=== PATIENT | female | born 1970 | race Caucasian/White ===

== ENCOUNTER → 2016-04-14 | Outpatient (REF) | payer OTHER | LOC: M SFHCWAGY 10:06 | PROVIDERS: ATTEND Nurse Practitioner Family | DX: Z12.4 Encounter for screening for malignant neoplasm of cervix (principal) ==

== ENCOUNTER → 2016-04-14 | Outpatient (CLI) | payer OTHER ==
--- NOTE | 2016-04-14 10:35 | REPMRS ---
Patient History The patient states she had a clinical breast exam in 03/2016. Family history of pancreatic cancer in mother at age 54. Digital Woman Screen Mammo: April 14, 2016 - Exam #: [id number] Bilateral CC and MLO view(s) were taken. Technologist: Sofy Sparks, Technologist Prior study comparison: January 18, 2015, digital woman screen mammo performed at [facility]. January 12, 2014, digital woman screen mammo performed at [facility]. 2012, bilateral bilat screen digital mammo, performed at [facility]. FINDINGS: There are scattered fibroglandular densities. There has been no change in the appearance of the mammogram from the prior studies. There is a mild amount of scattered fibroglandular density which is fairly symmetric. There is no interval development of dominant mass, architectural distortion, or clustered microcalcification suggestive of malignancy. ASSESSMENT: BI-RADS/ACR category 1 mammogram. Negative. Recommendation Routine screening mammogram in 1 year (for women over age 40). This mammogram was interpreted with the aid of an FDA-approved computer-aided dectection system. Electronically Signed By: Michael Morel MD 04/14/16 [id number]
== END ==
LOC: M WHC 09:38
PROVIDERS: ATTEND Nurse Practitioner Family
DX: Z12.31 Encounter for screening mammogram for malignant neoplasm of breast (principal)

== ENCOUNTER → 2017-04-17 | Outpatient (REF) | payer OTHER | LOC: M SFHCWAGY 13:49 | DX: Z12.4 Encounter for screening for malignant neoplasm of cervix (principal) ==

== ENCOUNTER → 2017-04-17 | Outpatient (CLI) | payer OTHER | LOC: M WHC 13:15 | DX: Z12.31 Encounter for screening mammogram for malignant neoplasm of breast (principal) ==

== ENCOUNTER → 2017-04-29 | Outpatient (REF) | payer OTHER | LOC: M SFHCWAGY 10:53 | DX: R87.615 Unsatisfactory cytologic smear of cervix (principal) ==

== ENCOUNTER → 2017-04-29 | Outpatient (REF) | payer OTHER | LOC: M SFHCWAGY 13:10 | DX: R10.2 Pelvic and perineal pain (principal); R30.0 Dysuria ==

== ENCOUNTER → 2017-04-30 | Outpatient (CLI) | payer OTHER | LOC: M WHC 08:07 | DX: R10.2 Pelvic and perineal pain (principal) ==

== ENCOUNTER → 2017-05-03 | Outpatient (CLI) | payer OTHER ==
[2017-05-03 09:53] LABS: BASO % 0.3 % (0.0-1.0); EOS # 0.2 10^3/uL (0.0-0.50); EOS % 2.4 % (0.0-3.0); HEMATOCRIT 40.6 % (36.0-47.0); HEMOGLOBIN 13.4 g/dl (12.0-16.0); IMMATURE GRANULOCYTE % 0.3 % (0-0); LYMPH # 0.4 10^3/uL (1.5-4.5); LYMPH % 4.4 % (24.0-44.0); MONO # 0.4 10^3/uL (0.0-0.8); MONO % 4.6 % (0.0-5.0); NEUTROPHILS # 7.7 10^3/uL (1.8-7.7); PLATELET COUNT, AUTOMATED 295 10^3/uL (150-450); RED BLOOD COUNT 4.32 10^6/uL (4.00-5.40); RED CELL DISTRIBUTION WIDTH 12.6 % (11.5-14.5); WHITE BLOOD COUNT 8.7 10^3/uL (4.0-10.0)
[2017-05-03 10:15] LABS: ALBUMIN 3.7 GM/DL (3.2-5.2); ALKALINE PHOSPHATASE 311 U/L (45-117); ALT/SGPT 167 U/L (12-78); AMYLASE 35 U/L (25-115); ANION GAP 7 MEQ/L (8-16); AST/SGOT 131 U/L (7-37); BILIRUBIN,TOTAL 2.9 MG/DL (0.2-1.0); BLOOD UREA NITROGEN 7 MG/DL (7-18); CALCIUM LEVEL 8.3 MG/DL (8.5-10.1); CARBON DIOXIDE LEVEL 24 MEQ/L (21-32); CHLORIDE LEVEL 107 MEQ/L (98-107); CREATININE FOR GFR 0.58 MG/DL (0.55-1.30); GLOMERULAR FILTRATION RATE > 60.0 (>58); GLUCOSE, FASTING 103 MG/DL (70-100); LIPASE 177 U/L (73-393); POTASSIUM SERUM 4.4 MEQ/L (3.5-5.1); SODIUM LEVEL 138 MEQ/L (136-145); TOTAL PROTEIN 7.4 GM/DL (6.4-8.2)
== END ==
LOC: M LAB 09:25
DX: R10.11 Right upper quadrant pain (principal)

== ENCOUNTER → 2017-05-04 | Outpatient (CLI) | payer OTHER | LOC: M RAD 08:40 | DX: R10.9 Unspecified abdominal pain (principal) ==

== ENCOUNTER → 2017-05-05 | Outpatient (CLI) | payer OTHER ==
[2017-05-05 18:09] LABS: GAMMA GLUTAMYLTRANSPEPTIDASE 361 U/L (5-55)
[2017-05-06 08:18] LABS: CONTROL LINE HPYORI INT CTR LINE PRESENT; H PYLORI QUALITATIVE IgG NEGATIVE (NEGATIVE)
[2017-05-08 00:06] LABS: H PYLORI SERUM QUANT IGM <9.0 units (0.0-8.9)
== END ==
LOC: M LAB 16:23
DX: R10.11 Right upper quadrant pain (principal); R10.13 Epigastric pain
CPT/HCPCS: 82977

== ENCOUNTER → 2017-05-06 | Outpatient (CLI) | payer OTHER ==
[2017-05-08 10:40] LABS: HEPATITIS B SURFACE ANTIGEN NEGATIVE (NEGATIVE)
[2017-05-08 10:49] LABS: HEPATITIS C VIRUS ABY INDEX < 0.0 INDEX (<0.8)
[2017-05-08 10:50] LABS: HEPATITIS B CORE ANTIBODY IGM NEGATIVE (NEGATIVE)
[2017-05-08 10:52] LABS: HEPATITIS A ANTIBODY IGM NEGATIVE (NEGATIVE)
[2017-05-09 00:06] LABS: ANTI-MITOCHONDRIAL ANTIBODY 3.6 Units (0.0-20.0)
== END ==
LOC: M LAB 14:25
DX: R94.5 Abnormal results of liver function studies (principal); R10.11 Right upper quadrant pain; R10.13 Epigastric pain
CPT/HCPCS: 87340

== ENCOUNTER → 2017-06-17 | Outpatient (CLI) | payer OTHER ==
[2017-06-17 19:59] LABS: ALBUMIN 3.7 GM/DL (3.2-5.2); ALBUMIN/GLOBULIN RATIO 1.03 (1.00-1.93); ALKALINE PHOSPHATASE 58 U/L (45-117); ALT/SGPT 14 U/L (12-78); AST/SGOT 20 U/L (7-37); BILIRUBIN,DIRECT 0.2 MG/DL (0.0-0.2); BILIRUBIN,TOTAL 0.5 MG/DL (0.2-1.0); TOTAL PROTEIN 7.3 GM/DL (6.4-8.2)
== END ==
LOC: M WUC 17:07
DX: R10.11 Right upper quadrant pain (principal)

== ENCOUNTER → 2017-10-30 | Outpatient (REF) | payer OTHER | LOC: M SFHCWAGY 17:01 | DX: R10.2 Pelvic and perineal pain (principal) ==

== ENCOUNTER → 2018-04-19 | Outpatient (REF) | payer OTHER | LOC: M SFHCWAGY 15:22 | PROVIDERS: ATTEND Nurse Practitioner Family | DX: Z12.4 Encounter for screening for malignant neoplasm of cervix (principal) ==

== ENCOUNTER → 2018-04-19 | Outpatient (CLI) | payer OTHER ==
--- NOTE | 2018-04-19 16:17 | REPMRS ---
Patient History The patient states she had a clinical breast exam in 03/2018. Family history of pancreatic cancer at age 54 in mother. Took hormonal contraceptives for 3 years 1 month beginning at age 32. Digital Woman Screen Mammo: April 19, 2018 - Exam #: [id number] Bilateral CC and MLO view(s) were taken. Technologist: Astrid Montoya Technologist Prior study comparison: April 17, 2017, digital woman screen mammo performed at [facility]. April 14, 2016, digital woman screen mammo performed at [facility]. FINDINGS: There are scattered fibroglandular densities. There has been no change in the appearance of the mammogram from the prior studies. There is a mild amount of scattered fibroglandular density which is fairly symmetric. There is no interval development of dominant mass, architectural distortion, or clustered microcalcification suggestive of malignancy. 3-D tomosynthesis shows no additional findings. Assessment: BI-RADS/ACR category 1 mammogram. Negative Mammogram. Recommendation Routine screening mammogram of both breasts in 1 year (for women over age 40). This patient's Lifetime Breast Cancer RIsk is estimated at 11.4 %. This mammogram was interpreted with the aid of an FDA-approved computer-aided dectection system. Electronically Signed By: Michael Morel MD 04/19/18 [id number]
== END ==
LOC: M WHC 15:04
PROVIDERS: ATTEND Nurse Practitioner Family
DX: Z12.31 Encounter for screening mammogram for malignant neoplasm of breast (principal); Z80.0 Family history of malignant neoplasm of digestive organs; Z92.0 Personal history of contraception

== ENCOUNTER 2018-08-28 20:46 | Emergency (ER) | payer OTHER ==
[~2018-08-28] VITALS: Ht 160 cm; Wt 59.1 kg
[2018-08-28] MEDS ORDERED: NS 1,000 ML IV ONE (21:30)
[2018-08-28 22:19] LABS: BASO % 0.3 % (0.0-1.0); HEMATOCRIT 40.3 % (36.0-47.0); HEMOGLOBIN 13.4 g/dl (12.0-15.5); LYMPH # 0.7 10^3/uL (1.5-4.5); LYMPH % 5.6 % (24.0-44.0); MEAN CORPUSCULAR HEMOGLOBIN 31.8 pg (27.0-33.0); MEAN CORPUSCULAR HGB CONC 33.3 g/dl (32.0-36.5); MEAN CORPUSCULAR VOLUME 95.7 fl (80.0-96.0); MONO # 0.2 10^3/uL (0.0-0.8); MONO % 1.9 % (0.0-5.0); NEUTROPHILS # 10.8 10^3/uL (1.8-7.7); NEUTROPHILS % 91.9 % (36.0-66.0); PLATELET COUNT, AUTOMATED 361 10^3/uL (150-450); RED BLOOD COUNT 4.21 10^6/uL (4.00-5.40); WHITE BLOOD COUNT 11.8 10^3/uL (4.0-10.0)
[2018-08-28 22:28] LABS: PROTHROMBIN TIME 13.3 SECONDS (12.1-14.4)
[2018-08-28 22:29] LABS: PARTIAL THROMBOPLASTIN TIME 24.7 SECONDS (25.4-37.6)
--- NOTE | 2018-08-28 22:31 | REPVR ---
EXAM: CT Head Without Contrast EXAM DATE/TIME: 08/28/2018 9:33 PM CLINICAL HISTORY: 47 years old, female; Signs and symptoms; Syncope and collapse TECHNIQUE: Imaging protocol: Axial computed tomography images of the head without contrast. Radiation optimization: All CT scans at this facility use at least one of these dose optimization techniques: automated exposure control; mA and/or kV adjustment per patient size (includes targeted exams where dose is matched to clinical indication); or iterative reconstruction. COMPARISON: No relevant prior studies available. FINDINGS: Brain: Normal. No hemorrhage. Unremarkable white matter. No mass effect. Ventricles: Normal. No ventriculomegaly. Bones/joints: Unremarkable. No acute fracture. Sinuses: Visualized sinuses are unremarkable. No fluid levels. Mastoid air cells: Visualized mastoid air cells are well aerated. No mastoid effusion. Soft tissues: Unremarkable. IMPRESSION: No acute intracranial abnormality. Electronically signed by: Tab Bowens On 08/28/2018 22:31:33 PM
[2018-08-28 22:32] LABS: D-DIMER QUANT 386.42 ng/ml (<500)
--- NOTE | 2018-08-28 22:35 | REPVR ---
EXAM: CT Cervical Spine Without Contrast EXAM DATE/TIME: 08/28/2018 9:33 PM CLINICAL HISTORY: 47 years old, female; Signs and symptoms; Other: Syncope TECHNIQUE: Imaging protocol: Axial computed tomography images of the cervical spine without contrast. Coronal and sagittal reformatted images were created and reviewed. Radiation optimization: All CT scans at this facility use at least one of these dose optimization techniques: automated exposure control; mA and/or kV adjustment per patient size (includes targeted exams where dose is matched to clinical indication); or iterative reconstruction. COMPARISON: No relevant prior studies available. FINDINGS: Vertebrae: Minimal anterior subluxation of C3 on C4 likely chronic. Clinical correlation to exclude changes related to acute ligamentous injury suggested. Discs/Spinal canal/Neural foramina/other: No significant disc space narrowing or foraminal stenosis. Mild degenerative changes both mandibular condyles. Soft tissues: Unremarkable. Lungs: Lung apices are normal. IMPRESSION: Minimal anterior subluxation of C3 on C4 likely chronic. Clinical correlation to exclude changes related to acute ligamentous injury suggested. Otherwise unremarkable. Electronically signed by: Tab Bowens On 08/28/2018 22:35:40 PM
[2018-08-28 22:48] LABS: BLOOD UREA NITROGEN 9 MG/DL (7-18); CALCIUM LEVEL 8.7 MG/DL (8.5-10.1); CARBON DIOXIDE LEVEL 28 MEQ/L (21-32); CHLORIDE LEVEL 107 MEQ/L (98-107); CPK CREATINE PHOSPHOKINASE 122 U/L (26-192); CREATININE FOR GFR 0.65 MG/DL (0.55-1.30); ETHYL ALCOHOL (ETHANOL) < 0.003 % (0.000-0.010); FREE T4 0.88 NG/DL (0.76-1.46); GLOMERULAR FILTRATION RATE > 60.0 (>58); GLUCOSE, FASTING 106 MG/DL (70-100); MAGNESIUM LEVEL 2.1 MG/DL (1.8-2.4); POTASSIUM SERUM 4.6 MEQ/L (3.5-5.1); SODIUM LEVEL 142 MEQ/L (136-145); THYROID STIMULATING HORMONE 0.616 uIU/ML (0.358-3.740); TROPONIN I < 0.02 NG/ML (< 0.10)
[2018-08-28 23:09] LABS: AMPHETAMINES LEVEL URINE NEGATIVE (NEGATIVE); BARBITURATES URINE NEGATIVE (NEGATIVE); BENZODIAZEPINES URINE NEGATIVE (NEGATIVE); CANNABINOIDS URINE POSITIVE (NEGATIVE); COCAINE METABOLITE URINE NEGATIVE (NEGATIVE); METHADONE URINE NEGATIVE (NEGATIVE); OPIATES URINE NEGATIVE (NEGATIVE); PHENCYCLIDINE URINE NEGATIVE (NEGATIVE)
[2018-08-28] MEDS ORDERED: ONDANSETRON 4MG/2ML VIAL (J2405) IV ONE (23:15)
[2018-08-29] MEDS ORDERED: KETOROLAC 30 MG/ML VIAL (J1885) IV ONE
[2018-08-29] MEDS ORDERED: NS 1,000 ML IV ONE (00:15)
[2018-08-29] MEDS ORDERED: ONDA4TAB6 PO (00:21)
[2018-08-29] MEDS ORDERED: IBUP-1114 PO (00:21)
[2018-08-29] MEDS ORDERED: METOCLOPRAMIDE INJ 10MG/2ML VIAL (J2765) IV PRN (00:30)
[2018-08-29 03:21] VITALS: BP 108/64
--- NOTE | 2018-08-29 06:38 | ECGEPIP ---
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
--- NOTE | 2018-08-29 07:03 | REP ---
Clinical: Syncope/near syncope . Comparison: 02/13/2009 . Findings: The mediastinum and cardiac silhouette are stable and within normal limits for portable technique. The lung powell are clear without acute consolidation, effusion, or pneumothorax. Skeletal structures are intact. Impression: No acute cardiopulmonary process appreciated. Electronically Signed by Ezequiel Almaraz MD 08/29/2018 06:54 A
== END 2018-08-29 03:43 | disposition home or self-care (01) ==
LOC: M ED 20:46
DX: R55 Syncope and collapse (principal); R11.0 Nausea; Z87.891 Personal history of nicotine dependence
CPT/HCPCS: 70450; 71045; 72125; 80048; 80307; 82550; 82553; 83735; 84439; 84443; 84484; 85025; 85379; 85610; 85730; 93005; 93041; 94760; 96361; 96374; 96375; 99285; G0480; J1885; J2405

== ENCOUNTER → 2019-02-04 | Outpatient (REF) | payer OTHER ==
[~2019-02-04] MED LIST: IBUP-1114 PO; ONDA4TAB6 PO
[2019-02-04 19:26] LABS: PERCENT SATURATION 28.1 % (13.2-45.0)
== END ==
LOC: M LAB REF 18:46
PROVIDERS: ATTEND Internal Medicine
DX: Z11.59 Encounter for screening for other viral diseases (principal); D64.9 Anemia, unspecified

== ENCOUNTER → 2019-04-18 | Outpatient (REF) | payer OTHER | LOC: M LAB REF 18:30 | PROVIDERS: ATTEND Dermatology | DX: C43.59 Malignant melanoma of other part of trunk (principal) ==

== ENCOUNTER → 2019-05-03 | Outpatient (CLI) | payer OTHER ==
--- NOTE | 2019-05-03 15:04 | REP ---
BILATERAL SCREENING DIGITAL MAMMOGRAM WITH 3D TOMOSYNTHESIS: There are no palpable abnormalities or other breast complaints. The the patient states she had a clinical breast examination were, 2019. The Tyrer-Cuzick Lifetime Breast Cancer Risk Score is: 11.2% . Comparison is 01/12/2014. There are scattered areas of fibroglandular density. There is no dominant mass, micro calcific cluster or architectural distortion that would indicate malignancy. There are no additional findings on 3D tomosynthesiss. There is no change from the prior study. Impression: BIRADS/ACR category 1 mammogram. Negative. Recommendation: Routine annual screening mammography. This mammogram was interpreted with the aid of a FDA approved computer-aided detection system. A. Negative mammogram reports should not delay biopsy if a dominant or clinically suspicious mass is present. B. Not all breast cancers are identified by mammography or tomosynthesis. C. Adenosis and dense breasts may obscure an underlying neoplasm. Patient letter M1. Electronically Signed by Tyler Whalen MD 05/03/2019 02:55 P
== END ==
LOC: M WHC 13:24
PROVIDERS: ATTEND Nurse Practitioner Family
DX: Z12.31 Encounter for screening mammogram for malignant neoplasm of breast (principal); Z12.4 Encounter for screening for malignant neoplasm of cervix
CPT/HCPCS: 77063; 77067; 87624; G0123

== ENCOUNTER → 2019-05-20 | Outpatient (CLI) | payer OTHER ==
[~2019-05-20] MED LIST changes: +LIDOCAINE 5% (LIDODERM) PATCH As Ordered ONE; +NIAC100T9 PO; +NORC1TAB7 PO; +VITA-243 PO; +VITA30004 PO
--- NOTE | 2019-05-20 17:11 | REP ---
Melanoma Lymphoscintigraphy The procedure was performed by NAOMY Ramsay, under the direct supervision of Dr. Morel. The risks and benefits of the procedure were explained to the patient and informed consent was obtained both verbally and written. Directly prior to the start of the procedure, a formal timeout was completed in the procedure room. Using topical anesthetic and sterile technique 1.008 mCi of technetium 99m filtered sulfur colloid was injected subdermally in eight fractionated injections around the area of interest. Scintigraphic findings: Sequential images taken just following the intradermal injections demonstrate prompt flow and dinora uptake in the right axilla followed within 2-3 minutes by almost equally prominent uptake in the left axillary lymph nodes. Impression: 1. Bilateral right and left axillary lymph node uptake. Reviewed by NAOMY Payne 05/20/2019 03:55 P Electronically Signed by Nick Morel MD 05/20/2019 05:02 P
== END ==
LOC: M SDC 08:00 → M IRPRO 08:00 → EDSTATUS 09:30
PROVIDERS: ATTEND Surgery
DX: C43.59 Malignant melanoma of other part of trunk (principal)
CPT/HCPCS: 78195; A9541

== ENCOUNTER 2019-06-01 06:43 | Day surgery (SDC) | payer OTHER ==
[~2019-06-01] VITALS: Ht 160 cm; Wt 61.6 kg
[~2019-06-01 06:43] MED LIST changes: +LIDOCAINE 1% MDV 20ML VIAL SQ PRN; -LIDOCAINE 5% (LIDODERM) PATCH As Ordered ONE; +LIDOCAINE 5% (LIDODERM) PATCH TD ONE; +LR 1,000 ML IV ONE; -NORC1TAB7 PO; -VITA-243 PO; +VITA500T PO; +ceFAZolin SOD 2 GM in IV 1 EA IV ONE
[2019-06-01] MEDS ORDERED: LIDOCAINE 1% SDV INJ 30 ML VIAL As Ordered ONE ×2 (08:35→15:03)
[2019-06-01] MEDS ORDERED: BUPIVACAINE HCL 0.25% 30 ML VIAL As Ordered ONE ×2 (08:35→15:03)
[2019-06-01] MEDS ORDERED: propofoL 500 MG/50 ML VIAL As Ordered ONE (11:22)
[2019-06-01] MEDS ORDERED: MIDAZOLAM INJ 2 MG/2 ML VIAL (J2250) As Ordered ONE (11:22)
[2019-06-01] MEDS ORDERED: KETAMINE HCL 200 MG/20 ML VIAL As Ordered ONE (11:22)
[2019-06-01] MEDS ORDERED: LIDOCAINE 2% INJ 100 MG/5 ML SDV (FOR ANES.) As Ordered ONE (11:23)
[2019-06-01] MEDS ORDERED: fentaNYL 100 MCG/2 ML INJECTION (J3010) As Ordered ONE ×2 (11:23→14:04)
[2019-06-01] MEDS ORDERED: ONDANSETRON 4MG/2ML VIAL (J2405) As Ordered ONE ×3 (11:23→17:49)
[2019-06-01] MEDS ORDERED: METHYLENE BLUE 0.5% (5MG/ML) 10 ML AMP (PROVAYBLUE)(Q9968 PER 1MG) As Ordered ONE (12:07)
[2019-06-01] MEDS ORDERED: GLYCOPYRROLATE INJ 0.2 MG/ML 2 ML VIAL As Ordered ONE (12:07)
[2019-06-01] MEDS ORDERED: KETOROLAC 60 MG/2 ML VIAL (J1885) As Ordered ONE (13:37)
[2019-06-01] MEDS ORDERED: propofoL 200 MG/20 ML VIAL As Ordered ONE ×4 (13:38→15:41)
--- NOTE | 2019-06-01 14:07 | REP ---
Melanoma Lymphoscintigraphy The procedure was performed by NAOMY Ramsay, under the direct supervision of Dr. Morel. The risks and benefits of the procedure were explained to the patient and informed consent was obtained both verbally and written. Directly prior to the start of the procedure, a formal timeout was completed in the procedure room. Using topical anesthetic and sterile technique 1.009 mCi of technetium 99m filtered sulfur colloid was injected subdermally in eight fractionated periareolar injections. Scintigraphic findings: Sequential images demonstrate bilateral axillary dinora uptake. Impression: 1. Bilateral axillary dinora uptake. Reviewed by NAOMY Payne 06/01/2019 12:23 P Electronically Signed by Nick Morel MD 06/01/2019 01:59 P
[2019-06-01] MEDS ORDERED: NORC1TAB7 PO (16:36)
[2019-06-01] MEDS ORDERED: NORCO, ANEXSIA 5/325MG TABLET (HYDROcodone/ACETAMINOPHEN) PO PRN (18:00)
[2019-06-01] MEDS ORDERED: ONDANSETRON 4MG/2ML VIAL (J2405) IV PRN (18:00)
[2019-06-01] MEDS ORDERED: fentaNYL 100 MCG/2 ML INJECTION (J3010) IV PRN (18:00)
[2019-06-01] MEDS ORDERED: KETOROLAC 30 MG/ML VIAL (J1885) IV PRN (18:00)
[2019-06-01] MEDS ORDERED: LR 1,000 ML IV SCH (18:00)
[2019-06-01 18:45] VITALS: BP 145/86
--- NOTE | 2019-06-03 09:36 | ROOPDOC ---
[facility] Report Of Operation Report of Operation DATE OF PROCEDURE: 06/01/19 PREPROCEDURE DIAGNOSES: melanoma right mid back (0.7 mm depth) POSTPROCEDURE DIAGNOSES: same. PROCEDURE: wide local excision with 1 cm margin melanoma right mid back, bilateral axilla sentinel lymph node biopsy. SURGEON: Blayne Mustafa MD BODY TRIMMER: ANESTHESIA: General Anesthesia. ESTIMATED BLOOD LOSS: Approximately 40mL. (20 mL with the excision and 30 mL with the bilateral SLN) COMPLICATIONS: none. REMARKS: Patient is a 48-year-old female with a T1 melanoma on shave biopsy at the mid back area slightly to the right of the midline preoperative lymphoscintigraphy demonstrated lymphatic flow from the tumor site to both axilla. DESCRIPTION OF PROCEDURE: Patient was given 2 g Ancef IV preoperatively for wound prophylaxis. She was brought in the operating room, initially positioned on the right lateral decubitus position with the pressure points padded and on a beanbag. Compression boots were placed on both lower extremities were DVT prophylaxis. IV sedation with monitored anesthesia care given throughout the procedure. She had a lymphoscintigram performed early in the morning prior to going to the operating room using technetium 99 sulfur colloid injected peritumorally. Again bilateral axillary dinora uptake is visualized. Prior to prepping the patient I injected methylene blue intradermally around the tumor by mixing 3 mL of methylene blue with 5 mL of normal saline. This was massaged to allow for lymphatic uptake. The back area was then widely prepped and draped in the usual sterile fashion.We paused for a surgical timeout using both pre-incision safety checklist to verify correct patient, procedure site and additional clinical information prior to beginning the procedure. I marked the margins of the scar from the shave biopsy and marked 1 cm circumferential margins around it. A cruciate incision directed transversely was then created and compressing the 1 cm margin. This was deepened through the subcutaneous tissue down to the lumbodorsal fascia vomiting perpendicular orientation to the skin. The whole of the skin and subcutaneous continues tissue was removed and this was oriented with sutures and passed off as a specimen. Flaps were elevated by undermining the subcutaneous tissue roughly about 1-2 centimeters circumferentially underneath the incision lines to allow for tension-free closure. The surgical site was inspected for adequate hemostasis. I left some Cally hemostatic balder at the surgical bed. This was then closed in layers with 3-0 Vicryl placed interrupted in multiple layers of the subcutaneous tissue and the dermis and finally a running subcutaneous thickening or suture of 4-0 Monocryl to close the skin. Steri-Strips and 4 x 4 dressings and Tegaderm was then used for postoperative dressing. She was then placed supine on the table. Both arms were on the arm board. She was placed towards the right side of the bed and we started with the right axilla. She was again prepped and draped in the usual sterile fashion. A separate timeout was again performed. The hand-held gamma probe was used to determine the likeliest location of the sentinel lymph node.Prior to the incision and the count was 812. A slightly oblique incision was created at the bottom of the axillary triangle and slowly deepened through to the subcutaneous tissue. A Weitlander retractor was placed. The clavipectoral fascia was opened up with Metzenbaum scissors and then looked for a blue with hot node. It does not seem like to methylene blue spread enough to call her the note blue. Using mainly the gamma probe and manual palpation of the hottest spot was delivered into view and identified the nodes within the area. Initial count was 12,813. The node was excised with hemostatic clips placed at the vesical lymphatic and vascular channels. This was measured ex vivo at 11,159. Lipase and was again probed and there were still some hot portions left. A second hot node was identified at 9623 in vivo and 15,019 ex vivo. A third lymph node which was also somewhat hot was removed at 1671 ex vivo. A final count of 1193 is noted prior to closure of the axillary triangle. The nodes were removed for tiny shotty. I did not feel any abnormally enlarged nodes. Adequate hemostasis was checked. The wound bed is irrigated. I again left Cally at the wound bed and closed the axillary triangle in layers with interrupted 3-0 Vicryl sutures aligning the tissues and a subcutaneous thickening or suture of 4-0 Monocryl to close the skin. Again Steri-Strips and gauze dressings and Tegaderm was placed. I then turned my attention towards the left axilla. Again she was moved towa rds the left edge of the bed and left arm board. She was again separately prepped and draped in the another timeout was performed. In a similar manner the sentinel lymph node biopsy was performed. The gamma probe was used to locate the hottest spot which was at the medial portion of the axillary triangle. A transverse incision was created on top of this and the axilla was entered by opening up the clavipectoral fascia. Initial count was 10,031 prior to the incision. The hottest node was located. The left node seems to be more prominent though not abnormally enlarged. In trying to get to the hot portion I removed a few lymph nodes which were not hot nor blue. The first hot lymph node was located and removed. In vivo this was 12,875 and ex vivo count was 13,010. Another second hot lymph node was located in the same chain and ex vivo this was 26,237. Final count prior to closure was 4062. I removed some palpable lymph nodes which were not hot and this was sent off as separate specimen. In the same fashion the axillary triangle was inspected for hemostasis. Cally was again left at the wound bed and then closed in layers to approximate the axillary triangle with 3-0 Vicryl and closed with 4-0 Monocryl in subcuticular fashion. Again Steri-Strips and gauze dressings were placed covered with Tegaderm. Patient tolerated the procedure well she was promptly awakened and brought to the recovery room in stable condition. BLAYNE MUSTAFA MD Jun 01, 2019 13:12
== END 2019-06-01 18:50 | disposition home or self-care (01) ==
LOC: M SDC 06:43
PROVIDERS: ATTEND Surgery
DX: C43.59 Malignant melanoma of other part of trunk (principal); Z87.891 Personal history of nicotine dependence; I73.00 Raynaud's syndrome without gangrene
CPT/HCPCS: 14000; 38525; 78195; 88305; 88307; 88342; A9541; J0690; J1885; J2250; J2405; J3010; Q9968

== ENCOUNTER → 2019-06-16 | Outpatient (CLI) | payer OTHER ==
[~2019-06-16] MED LIST changes: -LIDOCAINE 1% MDV 20ML VIAL SQ PRN; -LIDOCAINE 5% (LIDODERM) PATCH TD ONE; -LR 1,000 ML IV ONE; +NORC1TAB7 PO; -ceFAZolin SOD 2 GM in IV 1 EA IV ONE
--- NOTE | 2019-06-16 12:53 | REP ---
CHEST X-RAY: TWO VIEWS. HISTORY: Pleurisy. COMPARISON CHEST X-RAY: August 28, 2018. FINDINGS: The lungs are well inflated and clear. No pulmonary nodule or mass lesion is seen. Pleural angles are sharp. Cardiomediastinal silhouette is unremarkable. There are surgical clips in the soft tissues of the axilla bilaterally. IMPRESSION: No active disease. Electronically Signed by Nick Morel MD 06/16/2019 01:12 P
== END ==
LOC: M RAD 11:19
PROVIDERS: ATTEND Surgery
DX: R09.1 Pleurisy (principal)

== ENCOUNTER → 2020-04-16 | Outpatient (REF) | payer OTHER ==
[~2020-04-16] MED LIST changes: +VITA-243 PO; -VITA500T PO
[2020-04-17 23:21] LABS: ANTINUCLEAR ANTIBODIES DIRECT Negative (Negative); CYCLIC CITRULLINATED PEPTIDE 5 units (0-19)
== END ==
LOC: M LAB REF 11:29
PROVIDERS: ATTEND Internal Medicine
DX: M25.50 Pain in unspecified joint (principal)

== ENCOUNTER → 2020-05-11 | Outpatient (CLI) | payer OTHER ==
--- NOTE | 2020-05-11 14:56 | REPMRS ---
Patient History The patient states she had a clinical breast exam in 04/2020 Patient has history of melanoma at age 48. Family history of pancreatic cancer at age 54 in mother. Took hormonal contraceptives for 3 years 1 month beginning at age 32. Digital Woman Screen Mammo: May 11, 2020 - Exam #: [id number] Bilateral CC and MLO view(s) were taken. Technologist: Sarah Mcgowan, Technologist Prior study comparison: May 03, 2019, bilateral digital woman screen mammo performed at [facility]. April 19, 2018, bilateral digital woman screen mammo performed at [facility]. April 17, 2017, digital woman screen mammo performed at [facility]. FINDINGS: There are scattered fibroglandular densities. The Volpara volumetric breast density category is:B. There has been no change in the appearance of the mammogram from the prior studies. There is a mild amount of scattered fibroglandular density which is fairly symmetric. There is no interval development of dominant mass, architectural distortion, or grouped microcalcification suggestive of malignancy. 3-D tomosynthesis shows no additional findings. Assessment: BI-RADS/ACR category 1 mammogram. Negative Mammogram. Recommendation Routine screening mammogram of both breasts in 1 year (for women over age 40). This patient's [facility] Lifetime Breast Cancer Risk is estimated at 11.0 %. This mammogram was interpreted with the aid of an FDA-approved computer-aided dectection system. Electronically Signed By: Michael Morel MD 05/11/20 [id number]
== END ==
LOC: M WHC 13:39
PROVIDERS: ATTEND Nurse Practitioner Family
DX: Z12.31 Encounter for screening mammogram for malignant neoplasm of breast (principal); Z85.820 Personal history of malignant melanoma of skin; Z92.0 Personal history of contraception

== ENCOUNTER → 2020-10-15 | Outpatient (REF) | payer OTHER | LOC: M LAB REF 12:13 | PROVIDERS: ATTEND Internal Medicine | DX: D64.9 Anemia, unspecified (principal) ==

== ENCOUNTER → 2020-10-16 | Outpatient (CLI) | payer OTHER ==
--- NOTE | 2020-10-16 13:41 | REP ---
INDICATION: PROMINENCE STERNUM. COMPARISON: Comparison chest x-rays are from June 16, 2019. TECHNIQUE: Two views.. FINDINGS: The lungs are well inflated and free of infiltrate. The pleural angles are sharp. The heart size is normal. Pulmonary vasculature is not increased. No significant bony abnormality is seen. There are surgical clips projecting in the axillary soft tissues bilaterally unchanged. IMPRESSION: No active cardiopulmonary disease.. <Electronically signed by Michael Morel > 10/16/20 [id number]
== END ==
LOC: M WUC 11:15
PROVIDERS: ATTEND Internal Medicine
DX: M95.4 Acquired deformity of chest and rib (principal)

== ENCOUNTER → 2020-11-07 | Outpatient (CLI) | payer OTHER ==
[~2020-11-07] MED LIST changes: +METHACHOLINE KIT (J7674) INH ONE
--- NOTE | 2020-11-08 07:29 | PFTRPT ---
Site: [facility], [address] [place], [address] ID: [id number] Name: ALAN MILLER Visit Date: 11/07/2020 Second ID: [id number] Referring Doctor: Joanne Pollard DO Reviewing Doctor: Virgil García MD Cryogenic Transport Driver: Rosio RODRIGUEZ RRT Age: 49 : 1970 Sex: Female Race: Height: 63.00 Inches Weight: 145.00 Lbs BSA: 1.69 Order IDs: [id number] Requested Test(s): <RESP-PFT.METH CHAL> Diagnosis: J45.99 of albuterol for post bronchodilator. Review Status: Not Reviewed Pre-Bronch Post-Bronch Pred Actual %Pred Actual %Chng SPIROMETRY FVC (L) 3.44 3.50 101 3.47 FEV1 (L) 2.74 2.90 105 2.76 -4 FEV1/FVC (%) 80 83 103 79 -3 FEF 25% (L/sec) 5.14 6.07 118 5.57 -8 FEF 50% (L/sec) 3.95 3.81 96 3.72 -2 FEF 75% (L/sec) 1.46 1.38 94 0.89 -35 FEF 25-75% (L/sec) 2.74 3.05 111 2.58 -15 FEF Max (L/sec) 6.62 6.43 97 5.99 -6 FIVC (L) 3.56 3.49 -2 FIF 50% (L/sec) 3.61 4.55 125 6.16 35 FIF Max (L/sec) 4.71 6.19 31 Expiratory Time (sec) 7.12 6.96 -2 Back Extrap Vol (L) 0.11 0.10 -15 Time To FEFmax (sec) 0.097 0.088 -9
== END ==
LOC: M CARPUL 14:23
PROVIDERS: ATTEND Internal Medicine
DX: J45.990 Exercise induced bronchospasm (principal)
CPT/HCPCS: 94070; J7674

== ENCOUNTER 2021-03-04 08:57 | Outpatient (CLI) | payer OTHER ==
[~2021-03-04] VITALS: Ht 159.4 cm; Wt 65.3 kg
[~2021-03-04 08:57] MED LIST changes: +ALBUTEROL 90 MCG/ACT 8GM HFA INHALER INH PRN; +ALBUTEROL SULFATE 2.5 MG/0.5 ML INH NEB SOLN INH PRN; +EPINEPHrine INJ 1 MG/ML 1ML AMP IM PRN; -METHACHOLINE KIT (J7674) INH ONE; +NS 1,000 ML IV SCH; +diphenhydrAMINE 50MG/ML VIAL (J1200) IV PRN; +methylPREDNISolone 125MG 2ML VIAL IV PRN
[2021-03-04 09:25] VITALS: BP 108/59
[2021-03-04 09:55] VITALS: BP 115/54
[2021-03-04] MEDS ORDERED: CASIRIVIMAB (REGN10933) 600 MG, IMDEVIMAB (REGN10987) 600 MG in NS 250 ML IV ONE (10:00)
[2021-03-04 10:25] VITALS: BP 93/54
[2021-03-04 11:25] VITALS: BP 104/64
== END 2021-03-04 11:25 | disposition home or self-care (01) ==
LOC: M OPCLI4PR 08:57
PROVIDERS: ATTEND Internal Medicine
DX: U07.1 COVID-19 (principal); Z91.041 Radiographic dye allergy status

== ENCOUNTER → 2021-05-16 | Outpatient (CLI) | payer OTHER ==
[~2021-05-16] MED LIST changes: -ALBUTEROL 90 MCG/ACT 8GM HFA INHALER INH PRN; -ALBUTEROL SULFATE 2.5 MG/0.5 ML INH NEB SOLN INH PRN; -EPINEPHrine INJ 1 MG/ML 1ML AMP IM PRN; -NS 1,000 ML IV SCH; -diphenhydrAMINE 50MG/ML VIAL (J1200) IV PRN; -methylPREDNISolone 125MG 2ML VIAL IV PRN
== END ==
LOC: M WHC 15:42
PROVIDERS: ATTEND Advanced Practice Midwife
DX: Z12.31 Encounter for screening mammogram for malignant neoplasm of breast (principal)

== ENCOUNTER → 2021-08-08 | Outpatient (REF) | payer OTHER ==
[2021-08-08 17:16] LABS: C REACTIVE PROTEIN QUANTITATIV < 0.30 MG/DL (0.00-0.30); RHEUMATOID FACTOR QUANT < 10.0 IU/ML (<15.0)
[2021-08-11 21:06] LABS: ANTINUCLEAR ANTIBODIES DIRECT Negative (Negative); CYCLIC CITRULLINATED PEPTIDE 7 units (0-19)
== END ==
LOC: M LAB REF 16:10
PROVIDERS: ATTEND Internal Medicine
DX: I73.00 Raynaud's syndrome without gangrene (principal); D50.9 Iron deficiency anemia, unspecified; M25.50 Pain in unspecified joint

== ENCOUNTER → 2022-01-09 | Outpatient (CLI) | payer OTHER | LOC: M WHC 15:11 | PROVIDERS: ATTEND Nurse Practitioner Family | DX: R10.2 Pelvic and perineal pain (principal) ==

== ENCOUNTER → 2022-01-10 | Outpatient (CLI) | payer OTHER ==
[2022-01-10 18:30] LABS: BASO % 0.7 % (0.0-1.0); EOS # 0.1 10^3/uL (0.0-0.5); EOS % 2.1 % (0.0-3.0); HEMATOCRIT 38.5 % (36.0-47.0); HEMOGLOBIN 12.3 g/dl (12.0-15.5); LYMPH # 2.1 10^3/uL (1.5-5.0); LYMPH % 37.3 % (24.0-44.0); MEAN CORPUSCULAR HEMOGLOBIN 31.1 pg (27.0-33.0); MEAN CORPUSCULAR HGB CONC 31.9 g/dl (32.0-36.5); MEAN CORPUSCULAR VOLUME 97.5 fl (80.0-96.0); MONO # 0.5 10^3/uL (0.0-0.8); MONO % 8.1 % (2.0-8.0); NEUTROPHILS # 2.9 10^3/uL (1.5-8.5); NEUTROPHILS % 51.4 % (36.0-66.0); PLATELET COUNT, AUTOMATED 346 10^3/uL (150-450); RED BLOOD COUNT 3.95 10^6/uL (4.00-5.40); WHITE BLOOD COUNT 5.7 10^3/uL (4.0-10.0)
[2022-01-10 19:50] LABS: ALBUMIN 3.8 GM/DL (3.2-5.2); ALT/SGPT 15 U/L (12-78); AMYLASE 59 U/L (25-115); BILIRUBIN,TOTAL 0.4 MG/DL (0.2-1.0); BLOOD UREA NITROGEN 11 MG/DL (7-18); CALCIUM LEVEL 8.7 MG/DL (8.5-10.1); CARBON DIOXIDE LEVEL 28 MEQ/L (21-32); CHLORIDE LEVEL 106 MEQ/L (98-107); CREATININE FOR GFR 0.68 MG/DL (0.55-1.30); GLOMERULAR FILTRATION RATE > 60.0 (>51); GLUCOSE, FASTING 87 MG/DL (70-100); LIPASE 134 U/L (73-393); POTASSIUM SERUM 4.3 MEQ/L (3.5-5.1); SODIUM LEVEL 137 MEQ/L (136-145); TOTAL PROTEIN 7.1 GM/DL (6.4-8.2)
[2022-01-13 13:07] LABS: ANTINUCLEAR ANTIBODIES DIRECT Negative (Negative)
== END ==
LOC: M RAD 16:52
PROVIDERS: ATTEND Physician Assistant
DX: M54.50 Low back pain, unspecified (principal)

== ENCOUNTER → 2022-01-10 | Outpatient (REF) | payer OTHER | LOC: M WUC 20:26 | PROVIDERS: ATTEND Physician Assistant | DX: R10.30 Lower abdominal pain, unspecified (principal) ==

== ENCOUNTER → 2022-06-25 | Outpatient (CLI) | payer OTHER | LOC: M WHC 13:48 | PROVIDERS: ATTEND Nurse Practitioner Family | DX: Z12.31 Encounter for screening mammogram for malignant neoplasm of breast (principal) ==

== ENCOUNTER → 2022-06-25 | Outpatient (REF) | payer OTHER | LOC: M SFHCWAGY 10:11 | PROVIDERS: ATTEND Nurse Practitioner Family | DX: Z12.4 Encounter for screening for malignant neoplasm of cervix (principal) | CPT/HCPCS: 87624; G0123 ==

== ENCOUNTER 2022-07-23 07:31 | Day surgery (SDC) | payer OTHER ==
[~2022-07-23] VITALS: Ht 160 cm; Wt 62.6 kg
[~2022-07-23 07:31] MED LIST changes: +ACET650T61 PO; +CENT1TAB PO; +NS 1,000 ML IV ONE; +SERT25TA21 PO; +vitamin B complex PO
[2022-07-23] MEDS ORDERED: propofoL 200 MG/20 ML VIAL As Ordered ONE (09:39)
[2022-07-23 09:58] VITALS: BP 135/88
== END 2022-07-23 10:10 | disposition home or self-care (01) ==
LOC: M OPP 07:31
PROVIDERS: ATTEND Surgery
DX: K62.89 Other specified diseases of anus and rectum (principal); K64.1 Second degree hemorrhoids

== ENCOUNTER → 2023-07-30 | Outpatient (CLI) | payer OTHER ==
[~2023-07-30] MED LIST changes: -NS 1,000 ML IV ONE
== END ==
LOC: M WHC 13:05
PROVIDERS: ATTEND Nurse Practitioner Family
DX: Z12.31 Encounter for screening mammogram for malignant neoplasm of breast (principal)

== ENCOUNTER → 2024-03-14 | Outpatient (CLI) | payer OTHER ==
[~2024-03-14] MED LIST changes: +ONDA-282 PO; -ONDA4TAB6 PO
== END ==
LOC: M RAD 16:07
PROVIDERS: ATTEND Internal Medicine
DX: R10.816 Epigastric abdominal tenderness (principal)

== ENCOUNTER → 2024-04-01 | Outpatient (CLI) | payer OTHER ==
[~2024-04-01] MED LIST changes: +BARIUM SULFATE 700 MG TABLET (E-Z-DISK) ONE
== END ==
LOC: M PLAIMG 07:57
PROVIDERS: ATTEND Internal Medicine
DX: R10.816 Epigastric abdominal tenderness (principal)

== ENCOUNTER → 2024-08-16 | Outpatient (CLI) | payer OTHER ==
[~2024-08-16] MED LIST changes: -BARIUM SULFATE 700 MG TABLET (E-Z-DISK) ONE
== END ==
LOC: M WHC 15:16
PROVIDERS: ATTEND Nurse Practitioner Family
DX: Z12.31 Encounter for screening mammogram for malignant neoplasm of breast (principal)

== ENCOUNTER → 2024-08-16 | Outpatient (REF) | payer OTHER ==
[2024-08-19 14:22] LABS: HPV APTIMA Not Detected (Not Detected)
== END ==
LOC: M SFHCWAGY 10:09
PROVIDERS: ATTEND Nurse Practitioner Family
DX: Z12.4 Encounter for screening for malignant neoplasm of cervix (principal); Z77.9 Other contact with and (suspected) exposures hazardous to health
CPT/HCPCS: 87624; G0123

== ENCOUNTER → 2024-10-24 | Outpatient (REF) | payer OTHER | LOC: M LAB REF 17:13 | PROVIDERS: ATTEND Internal Medicine | DX: R35.0 Frequency of micturition (principal) ==